=== PATIENT | female | born 1955 | race Hispanic/Latino ===

== ENCOUNTER → 2017-08-23 | Outpatient (CLI) | payer OTHER ==
--- NOTE | 2017-08-23 11:03 | Diagnostic Imaging Report ---
PROCEDURE:BARIUM ENEMA W/AIR C INDICATION:Incomplete colonoscopy COMPARISON:None. TECHNIQUE:Routine double contrast barium enema. Fluoroscopy time: 2.4 minutes. Cumulative air kerma: 86.57 mGy. FINDINGS: Large bowels opacified to the terminal ileum. There is normal filling of the colon, without evidence of polyp or ulcer. There is mild sigmoid diverticulosis, with marked sigmoid colon redundancy. CONCLUSION: Redundant sigmoid colon with mild diverticulosis. Dictated by: Tawanda Johnson M.D. on 08/23/2017 at 11:11 Electronically approved by: Tawanda Johnson M.D. on 08/23/2017 at 11:11
== END ==
LOC: DX 07:22
PROVIDERS: ATTEND Internal Medicine Gastroenterology
DX: K57.30 Diverticulosis of large intestine without perforation or abscess without bleeding (principal)
CPT/HCPCS: 74280

== ENCOUNTER 2018-02-19 13:06 | Emergency (ER) | payer OTHER ==
[~2018-02-19] VITALS: Ht 154.9 cm; Wt 44.5 kg
[2018-02-19 14:10] VITALS: BP 109/62
== END 2018-02-19 14:18 | disposition left against medical advice (07) ==
LOC: ER 13:06
DX: R51 Headache (principal)

== ENCOUNTER → 2020-08-18 | Day surgery (SDC) | payer MEDICARE ==
[2020-08-16 08:51] LABS: BASOPHILS % 0.7 % (0.0-1.0); EOSINOPHILS # (AUTO) 0.1 (0.0-0.4); EOSINOPHILS % 1.3 % (0.0-6.0); HEMATOCRIT 38.7 % (34.2-44.1); HEMOGLOBIN 12.4 g/dL (12.0-16.0); LYMPHOCYTES # (AUTO) 1.6 (1.0-3.2); MEAN CORPUSCULAR HEMOGLOBIN 29.9 pg (28-32); MEAN CORPUSCULAR VOLUME 93.3 fL (81-99); MONOCYTES # (AUTO) 0.5 (0.2-0.8); MONOCYTES % 9.3 % (4.4-11.3); NEUTROPHILS # (AUTO) 3.3 (2.1-6.9); NEUTROPHILS % 59.3 % (38.7-80.0); PLATELET COUNT 264 x10e3/uL (140-360); RED BLOOD COUNT 4.15 x10e6/uL (3.6-5.1); RED CELL DISTRIBUTION WIDTH 13.2 % (11.7-14.4)
[~2020-08-18] MED LIST: FENTANYL CITRATE/PF 100MCG/2 ML INJ ONE; LIDOCAINE HCL 2% LOCAL INJ 5 ML SDV VIAL INJ ONE; LORAZEPAM PO; MIDAZOLAM HCL 2 MG/2 ML VIAL ONE; NEXIUM40 MG PO; PROPOFOL IV EMULSION 10 MG/ML 20 ML VIAL ONE; VIT D PO
[2020-08-18 07:50] VITALS: BP 106/59
== END | disposition home or self-care (01) ==
LOC: OR 05:26
PROVIDERS: ATTEND Internal Medicine Gastroenterology
DX: K22.70 Barrett's esophagus without dysplasia (principal); K29.50 Unspecified chronic gastritis without bleeding; K21.9 Gastro-esophageal reflux disease without esophagitis; Z71.3 Dietary counseling and surveillance; F41.9 Anxiety disorder, unspecified; Z88.0 Allergy status to penicillin; Z91.041 Radiographic dye allergy status; Z01.810 Encounter for preprocedural cardiovascular examination; Z01.812 Encounter for preprocedural laboratory examination; Z20.828 Contact with and (suspected) exposure to other viral communicable diseases; Z68.1 Body mass index [BMI] 19.9 or less, adult
CPT/HCPCS: 36415; 43239; 85025; 93005; J2001; J2250; J2704; J3010; U0002